=== PATIENT | male | born 1965 ===

== ENCOUNTER 2023-04-10 07:21 | Day surgery (SDC) | payer BC ==
[~2023-04-10 07:21] MED LIST: Bupivacaine 0.5%/EPINEPHrine 1:200,000 50 ML MDV ONE; Lactated Ringers 1,000 ML IV SCH; Lidocaine 1% 30 ML SDV ONE; Metoclopramide 10 MG/2 ML SDV IV SCH; Sodium Chloride 0.9% 10 ML Syringe FLUSH PRN; Sodium Chloride 0.9% 10 ML Syringe FLUSH SCH
[2023-04-10] MEDS ORDERED: fentaNYL 250 MCG/5 ML SDV ONE (07:31)
[2023-04-10] MEDS ORDERED: Ondansetron 4 MG/2 ML SDV ONE (07:31)
[2023-04-10] MEDS ORDERED: Lactated Ringers 1,000 ML ONE ×2 (07:31→10:03)
[2023-04-10] MEDS ORDERED: Succinylcholine 200 MG/10 ML MDV ONE (07:31)
[2023-04-10] MEDS ORDERED: Midazolam 1 MG/ML 2 ML SDV ONE (07:31)
[2023-04-10] MEDS ORDERED: Ketorolac 30 MG/ML SDV ONE (07:31)
[2023-04-10] MEDS ORDERED: Propofol 200 MG/20 ML SDV ONE (07:31)
[2023-04-10] MEDS ORDERED: Rocuronium 50 MG/5 ML Vial ONE (07:31)
[2023-04-10] MEDS ORDERED: Dexmedetomidine 200 MCG/2 ML SDV ONE (07:36)
[2023-04-10] MEDS ORDERED: EPINEPHrine 1 MG/ML SDV ONE (08:24)
[2023-04-10] MEDS ORDERED: Clindamycin in 0.9 % Sod Chlor 900 MG in Premix Bag 1 BAG IV ONE ×2 (08:30)
[2023-04-10] MEDS ORDERED: Pantoprazole 40 MG Tab.CR PO SCH (09:00)
[2023-04-10] MEDS ORDERED: Acetaminophen 325 MG Tab PO SCH (09:00)
[2023-04-10] MEDS ORDERED: Albuterol 0.083% 2.5 MG/3 ML Neb Soln NEB PRN (09:17)
[2023-04-10] MEDS ORDERED: fentaNYL 100 MCG/2 ML SDV IVPUSH PRN (09:17)
[2023-04-10] MEDS ORDERED: diphenhydrAMINE 50 MG/ML SDV IVPUSH PRN (09:17)
[2023-04-10] MEDS ORDERED: Ondansetron 4 MG/2 ML SDV IVPUSH PRN (09:17)
[2023-04-10] MEDS ORDERED: HYDROmorphone 0.5 MG/0.5 ML Syringe IVPUSH PRN (09:17)
[2023-04-10] MEDS ORDERED: ePHEDrine 50 MG/ML SDV IVPUSH PRN (09:17)
[2023-04-10] MEDS ORDERED: Phenylephrine 10 MG in Sodium Chloride 0.9% 99 ML IV SCH (09:30)
[2023-04-10] MEDS ORDERED: Neostigmine Methylsulfate 10 MG/10 ML MDV ONE (10:06)
[2023-04-10] MEDS ORDERED: Acetaminophen/oxyCODONE 325-5 MG Tab PO ONE (12:47)
== END 2023-04-10 13:39 | disposition home or self-care (01) ==
LOC: JD.SDS 07:21
PROVIDERS: ATTEND Surgery
DX: K66.0 Peritoneal adhesions (postprocedural) (postinfection) (principal); K29.50 Unspecified chronic gastritis without bleeding; K82.9 Disease of gallbladder, unspecified; E66.9 Obesity, unspecified; E78.00 Pure hypercholesterolemia, unspecified; I10 Essential (primary) hypertension; F41.9 Anxiety disorder, unspecified; K21.9 Gastro-esophageal reflux disease without esophagitis; E11.9 Type 2 diabetes mellitus without complications; G47.33 Obstructive sleep apnea (adult) (pediatric); Z79.899 Other long term (current) drug therapy; Z88.0 Allergy status to penicillin; Z68.35 Body mass index [BMI] 35.0-35.9, adult; Z87.891 Personal history of nicotine dependence; Z79.82 Long term (current) use of aspirin
CPT/HCPCS: 49320; 82947; 93005; A9270; J0171; J0330; J2250; J2405; J2704; J2710; J2765; J3010; J3490; J7120; J1885